=== PATIENT | male | born 1995 | race Caucasian/White ===

== ENCOUNTER 2020-02-13 03:45 | Inpatient (IN) | payer OTHER ==
[2020-02-13] VITALS (9 sets, daily range): BP systolic 126–138; BP diastolic 71–87; PULSE 63–87; TEMP 97.4–98.9
[~2020-02-13] VITALS: Ht 195.6 cm; Wt 86.5 kg
--- NOTE | 2020-02-13 05:55 | NUR ---
PATIENT ADMITTED TO ROOM 316, SALINE LOCK TO RAC, FLUSHES WITH NO PROBLEMS, DENIES NAUSEA, VOIDED UPON ADMIT TO ROOM IN BATHROOM, GAIT OBSERVED STEADY. SPEECH CLEAR, HAS NO QUESTIONS CURRENTLY. TELE MONITOR APPLIED ORDERED.
[2020-02-13 06:38] LABS: ALBUMIN 4.1 gm/dL (3.5-5.0); BASO % 0.5 % (0.0-2.0); BILIRUBIN,TOTAL 1.8 mg/dL (0.0-1.0); CALCIUM 9.2 mg/dL (8.4-10.2); CREATININE, serum 0.73 (0.66-1.25); EOS # 0.1 (0.0-0.7); EOS % 1.9 % (0-4.0); GRAN # 4.6 (1.4-6.5); GRAN % 61.2 % (42.2-75.2); HEMATOCRIT 39.1 % (42.0-52.0); HEMOGLOBIN 13.4 g/dl (13.5-18.0); LYMPH % 26.2 % (20.0-51.0); MAGNESIUM 1.7 mg/dL (1.6-2.3); MEAN CELL VOLUME 95 fl (80.0-100.0); MEAN CORPUSCULAR HEMOGLOBIN 33 pg (27.0-31.0); MEAN CORPUSCULAR HGB CONC 34 g/dl (33.0-37.0); MEAN PLATELET VOLUME 9.8 fl (7.4-10.4); MONO # 0.8 (0.1-0.6); MONO % 10.1 % (1.7-9.3); PLATELET COUNT 226 K/mm3 (130-400); REDCELL DISTRIBUTION WIDTH-CV 11.9 % (11.5-14.5); TOTAL PROTEIN 6.6 gm/dL (6.4-8.2)
[2020-02-13 06:40] LABS: POTASSIUM 2.9 mmol/L (3.4-5.0)
--- NOTE | 2020-02-13 07:30 | NUR ---
PATIENT RESTING IN BED DURING REPORT GIVEN TO DAY SHIFT NURSE WITH NO CURRENT C/O OR NEEDS. TELE CONTINUES.
--- NOTE | 2020-02-13 10:44 | NUR ---
Assessment complete. Patient resting in bed, awakes easily to voice upon entry. He is aware of his POC. His scores have been zeros this morning. No visible tremors or active nausea or vomiting. IV site is CD&I, fluids and magnesium running at this time. He denies pain or discomfort of any kind. States he is just groggy. Informed him of the high fall risk precautions that are in place, including the bed alarm. No other needs were expressed at this time. Call light is in reach.
--- NOTE | 2020-02-13 14:20 | NUR ---
Pt has scored a zero on every ETOH assessment thus far. He denies nausea/vomiting and states he is feeling a little better as of right now. he is aware of his POC. Requested an increase in his diet, will speak with PA to request. No other needs. Call light is in reach.
--- NOTE | 2020-02-13 14:49 | NUR ---
Continuous Improvement Manager met with patient to discuss discharge planning. Patient lives with his , Belen (ph#[phone]) and nine month old daughter. Patient sees JETHRO Ortiz at [facility] for primary care and obtains medications from [facility] with no difficulties. Patient is independent with ADLS. SW addressed alcohol use with patient. Patient denies any history of inpatient treatment. Patient expressed interest in outpatient services. SW provided resources which included information for [facility], [facility], and local AA meetings. SW offered to make an appointment for patient at [facility] for evaluation but patient advised he wants to look these resources over and follow up on his own. Patient plans to return home upon discharge. SW to continue to follow.
--- NOTE | 2020-02-13 15:50 | NUR ---
Pt continues to remain stable with out needs. No visible tremors, pt has had no nausea or vomiting and his diet has been increased to general. He was hungry so I provided him with a sandwich box, he has tolerated that well since consumption. He stated his throat was a little bit sore. While Dr. Marques was in she did state that his CT showed some esophogeal inflammation which was likely from the vomiting he was experiencing prior to admission. I offered tylenol or possible antistetic throat spray. he stated it is not that bad. I told him to inform me if it worsens and he feels like he needs something. No other needs at this time. Call light in reach.
--- NOTE | 2020-02-13 18:31 | NUR ---
Pt had no other issues through the day. He has no withdrawl symptoms and states that he feels better. He ate all of his dinner and requested more food. Fluids continue to run @125ml/hr. IV site CD&I. No other needs. Call light in reach.
--- NOTE | 2020-02-13 20:30 | NUR ---
Initial shift assessment done- denies pain,nausea- no tremors noted- eating without nausea--states wants to go home tomorrow, Tele on, VSS-- on detox protocol- scores 0,, on potassium protocol-will repeat potassium at 2100.
[2020-02-14 00:40] VITALS: BP 123/82; PULSE 53; TEMP 98
[2020-02-14 01:58] VITALS: BP 130/96; PULSE 78; TEMP 98.1
[2020-02-14 04:01] VITALS: BP 134/87; PULSE 60; TEMP 97.3
--- NOTE | 2020-02-14 07:00 | NUR ---
Quiet night- no requests, VSS, not scoring per detox protocol
[2020-02-14 07:04] LABS: BASO % 0.5 % (0.0-2.0); EOS # 0.4 (0.0-0.7); GRAN # 2.5 (1.4-6.5); GRAN % 44.9 % (42.2-75.2); HEMATOCRIT 38.2 % (42.0-52.0); HEMOGLOBIN 12.9 g/dl (13.5-18.0); LYMPH # 2.2 (1.2-3.4); LYMPH % 40.7 % (20.0-51.0); MEAN CELL VOLUME 98 fl (80.0-100.0); MEAN CORPUSCULAR HEMOGLOBIN 33 pg (27.0-31.0); MEAN CORPUSCULAR HGB CONC 34 g/dl (33.0-37.0); MEAN PLATELET VOLUME 9.9 fl (7.4-10.4); MONO # 0.3 (0.1-0.6); MONO % 5.5 % (1.7-9.3); PLATELET COUNT 180 K/mm3 (130-400); RED BLOOD COUNT 3.89 M/mm3 (4.20-5.60); REDCELL DISTRIBUTION WIDTH-CV 11.9 % (11.5-14.5)
[2020-02-14 07:12] LABS: ALBUMIN 3.5 gm/dL (3.5-5.0); BILIRUBIN,TOTAL 0.8 mg/dL (0.0-1.0); CALCIUM 8.8 mg/dL (8.4-10.2); CREATININE, serum 0.68 (0.66-1.25); POTASSIUM 3.8 mmol/L (3.4-5.0); TOTAL PROTEIN 5.9 gm/dL (6.4-8.2)
[2020-02-14 08:39] VITALS: BP 123/79; PULSE 65; TEMP 97.8
[2020-02-14] MEDS ORDERED: PAXIL 10MG10 MG PO (09:34)
[2020-02-14] MEDS ORDERED: FOLIC ACID 11 MG/TA1 PO (09:35)
[2020-02-14] MEDS ORDERED: VALIUM 10MG10 MG/TAB PO (09:35)
[2020-02-14] MEDS ORDERED: THIAMINE 1100 MG/TAB PO (09:35)
[2020-02-14] MEDS ORDERED: PROTONIX 40MG T40 MG PO (09:36)
[2020-02-14] MEDS ORDERED: DUO-KAPS1 CAP PO (09:36)
--- NOTE | 2020-02-14 10:00 | NUR ---
Patient alert and oriented, answers questions appropriately. See assessment. CIWA score remains zero. No tremors/hallucinations/slurring of speech. Patient voices his lapse in alcohol consumption. No c/o pain or discomfort.
[2020-02-14 10:09] VITALS: BP 122/78; PULSE 65; TEMP 97.8
--- NOTE | 2020-02-14 11:22 | NUR ---
Discharge instructions reviewed with patient, verbalized understanding. Discharged ambulatory to auto/home at 1120.
== END 2020-02-14 11:20 | disposition home or self-care (01) | DRG 897 ==
LOC: MEDICAL 03:45
PROVIDERS: Nurse Practitioner Family; Physician Assistant
DX: F10.239 Alcohol dependence with withdrawal, unspecified (principal); E87.3 Alkalosis; F32.9 Major depressive disorder, single episode, unspecified; F41.9 Anxiety disorder, unspecified; E87.6 Hypokalemia; E83.42 Hypomagnesemia; R73.9 Hyperglycemia, unspecified; Z88.0 Allergy status to penicillin
CPT/HCPCS: 99222-AI; 99239; A4216; C9113; J0696; J3411; J3475; J3480

== ENCOUNTER 2020-02-26 18:52 | Emergency (ER) | payer OTHER ==
[~2020-02-26] VITALS: Ht 195.6 cm; Wt 90.9 kg
[~2020-02-26 18:52] MED LIST: DUO-KAPS1 CAP PO; FOLIC ACID 11 MG/TA1 PO; PAXIL 10MG10 MG PO; PROTONIX 40MG T40 MG PO; THIAMINE 1100 MG/TAB PO; VALIUM 10MG10 MG/TAB PO
[2020-02-26 18:57] VITALS: TEMP 97.4
[2020-02-26 19:37] LABS: BASO % 0.7 % (0.0-2.0); EOS % 0.2 % (0-4.0); GRAN # 2.5 (1.4-6.5); GRAN % 45.7 % (42.2-75.2); HEMATOCRIT 48.2 % (42.0-52.0); HEMOGLOBIN 16.2 g/dl (13.5-18.0); LYMPH # 2.6 (1.2-3.4); LYMPH % 46.8 % (20.0-51.0); MEAN CELL VOLUME 94 fl (80.0-100.0); MEAN CORPUSCULAR HEMOGLOBIN 32 pg (27.0-31.0); MEAN CORPUSCULAR HGB CONC 34 g/dl (33.0-37.0); MEAN PLATELET VOLUME 8.9 fl (7.4-10.4); MONO # 0.3 (0.1-0.6); MONO % 6.2 % (1.7-9.3); PLATELET COUNT 317 K/mm3 (130-400); RED BLOOD COUNT 5.11 M/mm3 (4.20-5.60); REDCELL DISTRIBUTION WIDTH-CV 11.3 % (11.5-14.5)
[2020-02-26 19:43] LABS: ALBUMIN 4.6 gm/dL (3.5-5.0); BILIRUBIN,TOTAL 0.4 mg/dL (0.0-1.0); CALCIUM 9.7 mg/dL (8.4-10.2); CREATININE, serum 0.77 (0.66-1.25); PHOSPHOROUS 3.5 mg/dL (2.5-4.5); POTASSIUM 3.8 mmol/L (3.4-5.0); TOTAL PROTEIN 7.7 gm/dL (6.4-8.2)
[2020-02-26] MEDS ORDERED: LIBRIUM 25M25 MG/CAP PO (20:43)
[2020-02-26 20:56] VITALS: BP 150/98; PULSE 98
== END 2020-02-26 21:00 | disposition home or self-care (01) ==
LOC: COL.ER 18:52
PROVIDERS: Emergency Medicine
DX: S49.92XA Unspecified injury of left shoulder and upper arm, initial encounter (principal); F10.229 Alcohol dependence with intoxication, unspecified; F32.9 Major depressive disorder, single episode, unspecified; F41.9 Anxiety disorder, unspecified; Y90.8 Blood alcohol level of 240 mg/100 ml or more; W19.XXXA Unspecified fall, initial encounter
CPT/HCPCS: J2405

== ENCOUNTER 2020-05-28 17:52 | Emergency (ER) | payer OTHER ==
[~2020-05-28] VITALS: Ht 195.6 cm; Wt 97.7 kg
[~2020-05-28 17:52] MED LIST changes: +LIBRIUM 25M25 MG/CAP PO
[2020-05-28 18:30] LABS: COLLECTION METHOD CLEAN CATCH
[2020-05-28 18:40] LABS: MUCOUS Present /lpf; PH 6 (5-8); SQUAMOUS EPITHELIAL None Seen /hpf; URINE APPEARANCE Clear; URINE BACTERIA None Seen /hpf; URINE BILIRUBIN Negative (NEGATIVE); URINE BLOOD 1+ (NEGATIVE); URINE COLOR Yellow; URINE GLUCOSE Negative (NEGATIVE); URINE KETONE Negative (NEGATIVE); URINE LEUKOCYTE ESTERASE Negative (NEGATIVE); URINE NITRATE Negative (NEGATIVE); URINE PROTEIN(semi-quant) 2+ (NEGATIVE); URINE RBC None Seen /hpf; URINE UROBILINOGEN Negative (NEGATIVE)
[2020-05-28 18:55] LABS: BASO # 0.1 (0.0-0.2); BASO % 0.4 % (0.0-2.0); GRAN # 8.8 (1.4-6.5); GRAN % 65.8 % (42.2-75.2); HEMATOCRIT 45.2 % (42.0-52.0); HEMOGLOBIN 15.4 g/dl (13.5-18.0); LYMPH # 3.4 (1.2-3.4); LYMPH % 25.7 % (20.0-51.0); MEAN CELL VOLUME 88 fl (80.0-100.0); MEAN CORPUSCULAR HEMOGLOBIN 30 pg (27.0-31.0); MEAN CORPUSCULAR HGB CONC 34 g/dl (33.0-37.0); MEAN PLATELET VOLUME 9.4 fl (7.4-10.4); MONO % 7.7 % (1.7-9.3); PLATELET COUNT 260 K/mm3 (130-400); RED BLOOD COUNT 5.14 M/mm3 (4.20-5.60); REDCELL DISTRIBUTION WIDTH-CV 12.5 % (11.5-14.5)
[2020-05-28 19:06] LABS: ALBUMIN 3.6 gm/dL (3.5-5.0); CALCIUM 7.9 mg/dL (8.4-10.2); CREATININE, serum 0.74 (0.66-1.25); POTASSIUM 3.3 mmol/L (3.4-5.0)
[2020-05-28] MEDS ORDERED: ZOFRAN ODT4 MG PO (20:19)
[2020-05-28 21:50] VITALS: BP 118/64; PULSE 78; TEMP 98.5
== END 2020-05-28 21:54 | disposition home or self-care (01) ==
LOC: COL.ER 17:52
PROVIDERS: Emergency Medicine
DX: F10.129 Alcohol abuse with intoxication, unspecified (principal); R11.10 Vomiting, unspecified
CPT/HCPCS: C9113; J0780; J2405; J3411; J3475; J7030

== ENCOUNTER 2020-05-30 10:29 | Inpatient (IN) | payer OTHER ==
[~2020-05-30] VITALS: Ht 195.6 cm; Wt 91.3 kg
[2020-05-30] VITALS (346 sets, daily range): BP systolic 121–146; BP diastolic 80–107; PULSE 86–114; TEMP 97.5–99; O2SAT 69–100
[~2020-05-30 10:29] MED LIST changes: +ZOFRAN ODT4 MG PO
--- NOTE | 2020-05-30 10:50 | NUR ---
PT ADMITTED FROM [facility] FOR ETOH. PT IS LETHARGIC AND DROWSY. PT HELPED TRANSFER TO BED. PT ORIENTED TO ROOM AND FLOOR. PT FALLING ALSEEP BETWEEN QUESTIONS. PT INSTRUCTED MULTIPLE TIMES NOT TO GET UP WITH OUT ASSISTANCE AND ORIENTED TO CALL LIGHT. BED ALARM PLACED. VSS. PT SHOWING SR ON TELE. PT ASKED REGARDING LAST DRINK AND HE STATES " I DONT KNOW". INSTRUCTED PT THAT TODAY WAS SUNDAY WAS HIS LAST DRINK SUNDAY OR SUNDAY. PT REPEATS " I DONT KNOW". ASKED PT HOW MUCH DOES HE NORMALLY DRINK AND PT DOESNT ANSWER. ASSESSMENT COMPLETED. PT STATES HIS IS IN CASE OF EMERGENCY CONTACT. TOOK MULITPLE ATTEMPTS AND RE-AWAKENING PT TO GET WIFES PHONE NUMBER. PT HELPED TO STAND AND USE THE URINAL. HOSPITALIST NOTIFIED OF ARRIVAL. PT REMINED NOT TO GET OUT OF BED AND HOW TO USE CALL LIGHT. BED ALARM ACTIVE. LAB CALLED AND RT CALLED FOR EKG. WILL CONTINUE TO [facility].
[2020-05-30 11:55] LABS: COLLECTION METHOD CLEAN CATCH
--- NOTE | 2020-05-30 12:00 | NUR ---
LABS DRAWN, UA SENT, AND EKG DONE. BEDSIDE TO EVALUATE PT. PT STILL LETHARGIC AND FALLING ASLEEP DURING QUESTIONS. PT REMINDED NOT TO GET OUT OF BED AND HOW TO USE CALL LIGHT. BED ALARM ACTIVE.
[2020-05-30 12:05] LABS: PH 7 (5-8); SQUAMOUS EPITHELIAL None Seen /hpf; URINE APPEARANCE Clear; URINE BACTERIA None Seen /hpf; URINE BILIRUBIN Negative (NEGATIVE); URINE BLOOD 1+ (NEGATIVE); URINE COLOR Yellow; URINE GLUCOSE Negative (NEGATIVE); URINE KETONE Negative (NEGATIVE); URINE LEUKOCYTE ESTERASE Negative (NEGATIVE); URINE NITRATE Negative (NEGATIVE); URINE PROTEIN(semi-quant) Negative (NEGATIVE); URINE RBC None Seen /hpf; URINE UROBILINOGEN Negative (NEGATIVE)
[2020-05-30 12:06] LABS: BASO % 0.3 % (0.0-2.0); EOS % 0.1 % (0-4.0); GRAN % 63.3 % (42.2-75.2); HEMATOCRIT 41.4 % (42.0-52.0); HEMOGLOBIN 14.4 g/dl (13.5-18.0); LYMPH # 2.1 (1.2-3.4); LYMPH % 26.6 % (20.0-51.0); MEAN CELL VOLUME 87 fl (80.0-100.0); MEAN CORPUSCULAR HEMOGLOBIN 30 pg (27.0-31.0); MEAN CORPUSCULAR HGB CONC 35 g/dl (33.0-37.0); MEAN PLATELET VOLUME 9.9 fl (7.4-10.4); MONO # 0.7 (0.1-0.6); MONO % 9.3 % (1.7-9.3); PLATELET COUNT 166 K/mm3 (130-400); RED BLOOD COUNT 4.75 M/mm3 (4.20-5.60); REDCELL DISTRIBUTION WIDTH-CV 12.4 % (11.5-14.5)
[2020-05-30 12:16] LABS: ALBUMIN 3.2 gm/dL (3.5-5.0); BILIRUBIN,TOTAL 1.3 mg/dL (0.0-1.0); CALCIUM 7.6 mg/dL (8.4-10.2); CREATININE, serum 0.69 (0.66-1.25); TOTAL PROTEIN 5.3 gm/dL (6.4-8.2)
[2020-05-30 12:38] LABS: TRICYCLIC ANTIDEPRESS URINE NEGATIVE
--- NOTE | 2020-05-30 15:24 | NUR ---
PT HAVING NAUSEA AND VOMITTING. PT GIVEN MORE WATER AND SPRITE. ATIVAN GIVEN FOR DETOX SCORE. IT IS TOO EARLY FOR JACOB. CALLED FOR ADDTIONAL ORDERS. AWAITING ORDERS.
[2020-05-30 19:10] LABS: LACTIC ACID 3.1 mmol/L (0.4-2.0)
--- NOTE | 2020-05-30 19:38 | NUR ---
Bedside report received from VICKI Jones
--- NOTE | 2020-05-30 21:45 | NUR ---
Patient is calling at this time stating that he wants to go home and that he "can't stay here any longer". Patient states he would call his for transportation home. ALLY Navarrete called and notified. Says she will be down shortly to speak to him.
--- NOTE | 2020-05-30 22:00 | NUR ---
ALLY Navarrete speaks with the patient at this time. Patient repeats over and over that he has detoxed before and that he wants to go home. He "can't stay here for two days. I will ". Patient is educated that if he leaves AMA that he will likely have to pay out of pocket for this hospital stay. Patient says he cant afford that. Explained that there is nothing we can do if he leaves against advice. Patient states "well, why can't they just make it with advice?" explained that patient hasnt even started detoxing yet and it likely to get worse before better. Patient is scoring high on detox scale. Also told that he has lab work that is not within normal range and a doctor will not approve him to leave with them being that way. Assisted patient with calling his who states she will not come pick him up. Patient now changes his tone and states that he will be staying "because I can't afford to pay out of pocket". Will continue to monitor.
[2020-05-31] VITALS (557 sets, daily range): BP systolic 101–157; BP diastolic 71–104; PULSE 76–125; TEMP 97.5–99; O2SAT 80–100
--- NOTE | 2020-05-31 | NUR ---
Patient is confused and continually asks when he can go home. Explained he already spoke with the COO about this and that it would likely be a few days. He says ok and requests some grape juice. provided.
--- NOTE | 2020-05-31 02:45 | NUR ---
Patient is once again stating he is going to leave and he requests to speak to ALLY Navarrete. SHe is notified and comes to see the patient. The same conversation is had as earlier in the shift, He will not be cleared medically until he is past his detox window and stable. Patient is still scoring 10's on his CIWA scale. Patient states that he hasn't eaten anything all night, he finished a sandwich box less than an hour previous and has had 4 cups of broth. Patient is given more snacks of crackers and peanut butter. It is determined once again that the patient will not be leaving AMA at this time.
[2020-05-31 06:34] LABS: BASO % 0.3 % (0.0-2.0); EOS # 0.1 (0.0-0.7); EOS % 1.5 % (0-4.0); GRAN # 6.3 (1.4-6.5); GRAN % 70.1 % (42.2-75.2); HEMATOCRIT 40.6 % (42.0-52.0); LYMPH % 22.1 % (20.0-51.0); MEAN CELL VOLUME 87 fl (80.0-100.0); MEAN CORPUSCULAR HEMOGLOBIN 30 pg (27.0-31.0); MEAN CORPUSCULAR HGB CONC 35 g/dl (33.0-37.0); MEAN PLATELET VOLUME 10.4 fl (7.4-10.4); MONO # 0.5 (0.1-0.6); MONO % 5.8 % (1.7-9.3); PLATELET COUNT 146 K/mm3 (130-400); RED BLOOD COUNT 4.67 M/mm3 (4.20-5.60); REDCELL DISTRIBUTION WIDTH-CV 12.5 % (11.5-14.5)
[2020-05-31 06:50] LABS: CALCIUM 8.4 mg/dL (8.4-10.2); CREATININE, serum 0.7 (0.66-1.25); POTASSIUM 3.3 mmol/L (3.4-5.0)
--- NOTE | 2020-05-31 07:15 | NUR ---
Bedside report given to VICKI Bustamante
--- NOTE | 2020-05-31 10:40 | NUR ---
Initial visit; Patient thanked [employer] Fireman for visit and offering God's blessings.
[2020-06-01] VITALS (67 sets, daily range): BP systolic 109–155; BP diastolic 50–92; PULSE 59–109; TEMP 97.4–98.7; O2SAT 74–100
--- NOTE | 2020-06-01 03:52 | NUR ---
PT RESTING IN BED, DENIES PAIN, MUCH MORE A/O THAN AT START OF SHIFT. PT REMAINS ON PRECEDEX FOR ANIETY AND WITHDRAWLS. PT STATING THAT HE WANTS TO GO HOME, HE WANTS TO SIGN OUT AMA. STAFF REQUESTED THAT PT GET SOME REST AND RE-EVAL GRACY WISHES IN AM WITH MD. PT AGREES AT THIS TIME, PT APPEARS COMFORTABLE WITH 2ND SANDWISH TRAY AT BEDSIDE. WILL CONTINUE TO MONITOR PT STATUS AND UPDATE PROVIDERS NEEDED.
[2020-06-01 05:24] LABS: BASO % 0.5 % (0.0-2.0); EOS # 0.3 (0.0-0.7); EOS % 5.9 % (0-4.0); GRAN # 2.6 (1.4-6.5); GRAN % 60.6 % (42.2-75.2); HEMATOCRIT 39.3 % (42.0-52.0); HEMOGLOBIN 13.7 g/dl (13.5-18.0); LYMPH # 1.1 (1.2-3.4); LYMPH % 26.9 % (20.0-51.0); MEAN CELL VOLUME 87 fl (80.0-100.0); MEAN CORPUSCULAR HEMOGLOBIN 30 pg (27.0-31.0); MEAN CORPUSCULAR HGB CONC 35 g/dl (33.0-37.0); MEAN PLATELET VOLUME 10.4 fl (7.4-10.4); MONO # 0.3 (0.1-0.6); MONO % 5.9 % (1.7-9.3); PLATELET COUNT 128 K/mm3 (130-400); RED BLOOD COUNT 4.51 M/mm3 (4.20-5.60); REDCELL DISTRIBUTION WIDTH-CV 12.8 % (11.5-14.5)
[2020-06-01 05:36] LABS: CALCIUM 8.8 mg/dL (8.4-10.2); CREATININE, serum 0.67 (0.66-1.25); POTASSIUM 3.8 mmol/L (3.4-5.0)
--- NOTE | 2020-06-01 07:47 | NUR ---
Pt awakens to voice, lifts head off bed, makes eye contact asking "is it Sunday or Sunday? Where am I?" Pt reoriented. Pt expressing wishes to "get out of here. I need to leave" - Education provided
--- NOTE | 2020-06-01 11:49 | NUR ---
KIRK met with the patient to discuss discharge plan. The patient lives in [place] with his , Belen (ph#[phone]), and [id number] daughter. He reports independence with ADLs and does not have any DME. He works at [employer]. The patient's primary care provider is JETHRO King and he receives his medications at [facility]. He reports no difficulties obtaining his meds. The patient does not have advanced directives and he was not interested in completing them at this time. KIRK then addressed the patient's alcohol use. The patient reports that he has been to an inpatient treatment center, [facility], back in March. SW discussed inpatient treatment again after his hospital stay here. The patient reports that he does not want inpatient treatment at this time. He states that he misses his daughter and and plans to return home upon discharge. SW discussed outpatient treatment. The patient reports that he would be interested in this, but is not interested in KIRK setting any outpatient treatment up at this time. KIRK provided the patient a list of the different outpatient alcohol treatment and AA meetings around [place]. KIRK then contacted the patient's , Belen. Belen reports that the patient was in [facility] all of March and remained sober after he got out, but then relapsed while she and baby were in [place]. She states that she was there for ten days and just got back. Belen reports that she would like for the patient to follow through with outpatient treatment. Belen had no other questions for KRIK at this time. KIRK to continue to follow.
[2020-06-02] VITALS: BP 151/99; PULSE 115; TEMP 97.9
--- NOTE | 2020-06-02 00:02 | NUR ---
PT VOMITED AGAIN IN THE TOILET, APPEARS TO BE [place] IN COLOR AND MOSTLY FOOD HE ATE TURKEY SANDWICH EARLIER. ZOFRAN NOT AVAILABLE. ALLY FARIAS NOTIFIED AND ORDERED PHENERGAN WHICH WAS GIVEN.
--- NOTE | 2020-06-02 02:30 | NUR ---
PT'S GI PANEL CAME BACK POSITIVE FOR C DIFF TOXIN AND E COLI. THIS WAS REPORTED TO ALLY FARIAS. SECOND TEST ORDERED AND NOW AWAITING FOR RESULTS. PT'S NOW ON FLUIDS.
[2020-06-02 03:17] LABS: CLOSTRIDIUM DIFF A/B NEG; CLOSTRIDIUM DIFF A/B INTERP NonToxigenic C.diff
[2020-06-02 04:00] VITALS: BP 157/96; PULSE 119; TEMP 97.2
[2020-06-02 05:20] LABS: HEMATOCRIT 39.6 % (42.0-52.0); HEMOGLOBIN 13.6 g/dl (13.5-18.0); MEAN CELL VOLUME 88 fl (80.0-100.0); MEAN CORPUSCULAR HEMOGLOBIN 30 pg (27.0-31.0); MEAN CORPUSCULAR HGB CONC 34 g/dl (33.0-37.0); MEAN PLATELET VOLUME 10.3 fl (7.4-10.4); PLATELET COUNT 150 K/mm3 (130-400); RED BLOOD COUNT 4.48 M/mm3 (4.20-5.60); REDCELL DISTRIBUTION WIDTH-CV 13.1 % (11.5-14.5)
[2020-06-02 05:30] LABS: CALCIUM 8.5 mg/dL (8.4-10.2); CREATININE, serum 0.74 (0.66-1.25); POTASSIUM 3.5 mmol/L (3.4-5.0)
[2020-06-02 08:00] VITALS: BP 148/85; PULSE 104; TEMP 98.7
[2020-06-02] MEDS ORDERED: ATIVAN 0.50.5 MG/TAB PO (09:23)
--- NOTE | 2020-06-02 09:24 | NUR ---
SW attended clinical rounds. The patient is to discharge back home with his today, 06/02. No additional needs at this time.
[2020-06-02] MEDS ORDERED: VALIUM 5MG T5 MG/TAB PO ×2 (09:30→09:46)
--- NOTE | 2020-06-02 10:07 | NUR ---
MD Hyacinth ok to discharge pt despite MD Mirta from Infectious Disease has not returned call for consultation
--- NOTE | 2020-06-02 10:21 | NUR ---
MD Mirta contacted - ok to discharge home without antibiotics required to just be cautious of systemic antibiotics - pt educated
== END 2020-06-02 10:41 | disposition home or self-care (01) | DRG 897 ==
LOC: IMCU 10:29 → ICU 10:54
PROVIDERS: Internal Medicine; Nurse Practitioner Family; ADMIT Student in an Organized Health Care Education/Training Program
DX: F10.239 Alcohol dependence with withdrawal, unspecified (principal); A04.72 Enterocolitis due to Clostridium difficile, not specified as recurrent; E87.6 Hypokalemia; R74.0 Nonspecific elevation of levels of transaminase and lactic acid dehydrogenase [LDH]; R00.0 Tachycardia, unspecified; G47.00 Insomnia, unspecified; L30.4 Erythema intertrigo; Z88.0 Allergy status to penicillin; Y90.7 Blood alcohol level of 200-239 mg/100 ml
CPT/HCPCS: 99222-AI; 99232-AI; 99233-AI; 99239; J1650; J2060; J2405; J2550; J3480; J7030; J7120

== ENCOUNTER 2021-01-20 13:42 | Emergency (ER) | payer BC ==
[~2021-01-20] VITALS: Ht 195.6 cm; Wt 90.9 kg
[~2021-01-20 13:42] MED LIST changes: +ATIVAN 0.50.5 MG/TAB PO; +VALIUM 5MG T5 MG/TAB PO
[2021-01-20 13:43] VITALS: TEMP 97.8
[2021-01-20] MEDS ORDERED: VENLAFAXINE225 MG PO (13:52)
[2021-01-20 14:36] LABS: BASO % 0.5 % (0.0-2.0); EOS # 0.1 (0.0-0.7); EOS % 1.3 % (0-4.0); GRAN # 3.8 (1.4-6.5); GRAN % 61.9 % (42.2-75.2); HEMATOCRIT 41.7 % (42.0-52.0); HEMOGLOBIN 13.7 g/dl (13.5-18.0); LYMPH # 1.7 (1.2-3.4); LYMPH % 28.2 % (20.0-51.0); MEAN CELL VOLUME 88 fl (80.0-100.0); MEAN CORPUSCULAR HEMOGLOBIN 29 pg (27.0-31.0); MEAN CORPUSCULAR HGB CONC 33 g/dl (33.0-37.0); MONO # 0.5 (0.1-0.6); MONO % 7.8 % (1.7-9.3); PLATELET COUNT 239 K/mm3 (130-400); RED BLOOD COUNT 4.72 M/mm3 (4.20-5.60); REDCELL DISTRIBUTION WIDTH-CV 14.1 % (11.5-14.5)
[2021-01-20 14:46] LABS: ALBUMIN 4.8 gm/dL (3.5-5.0); BILIRUBIN,TOTAL 0.3 mg/dL (0.0-1.0); CALCIUM 9.8 mg/dL (8.4-10.2); CREATININE, serum 1.05 (0.66-1.25); POTASSIUM 3.9 mmol/L (3.4-5.0); TOTAL PROTEIN 7.8 gm/dL (6.4-8.2)
[2021-01-20 15:00] LABS: PROLACTIN 74.1 ng/mL (3.7-17.9)
[2021-01-20] MEDS ORDERED: KEPPRA1000 MG PO (16:37)
[2021-01-20 16:55] VITALS: BP 143/94; PULSE 81
== END 2021-01-20 17:00 | disposition home or self-care (01) ==
LOC: COL.ER 13:42
PROVIDERS: Emergency Medicine
DX: G40.409 Other generalized epilepsy and epileptic syndromes, not intractable, without status epilepticus (principal); R51.9 Headache, unspecified; Z88.1 Allergy status to other antibiotic agents
CPT/HCPCS: J1885; J1953; J2060; J7030

== ENCOUNTER → 2021-03-18 | Outpatient (REF) ==
[~2021-03-18] MED LIST changes: +KEPPRA1000 MG PO; +VENLAFAXINE225 MG PO
== END ==
LOC: ZLAB.WCH 09:16
DX: Z01.89 Encounter for other specified special examinations (principal)